=== PATIENT | female | born 1995 | race Caucasian/White ===

== ENCOUNTER 2018-12-17 07:16 | Day surgery (SDC) | payer BC, OTHER ==
[2018-12-16 12:42] VITALS: Ht 162.6 cm; Wt 122.5 kg
[~2018-12-17] VITALS: Ht 162.6 cm; Wt 122.5 kg
[2018-12-17] VITALS (13 sets, daily range): BP systolic 113–145; BP diastolic 69–84; PULSE 61–72; RESP 16–23
[~2018-12-17 07:16] MED LIST: ALBU8.5H8 INH; CEFAZOLIN 2 GM/50 ML (PMX) 50 ML IVPB SCH; HYDR12.53 ORAL
[2018-12-17] MEDS ORDERED: BACITRACIN/POLYMYXIN 28.35 GM OINT TOP ONE (09:06)
[2018-12-17] MEDS ORDERED: LIDOCAINE 1% (MPF) 30 ML INJ ONE (09:06)
[2018-12-17] MEDS ORDERED: BUPIVACAINE 0.25% (MPF) 30 ML INJ ONE (09:06)
[2018-12-17] MEDS ORDERED: FENTAnyl 50 MCG/ML VIAL ONE (09:20)
[2018-12-17] MEDS ORDERED: LIDOCAINE 2% (SDV) 5 ML INJ ONE (09:35)
[2018-12-17] MEDS ORDERED: PROPOFOL 60 ML ONE (09:35)
[2018-12-17] MEDS ORDERED: MEPERIDINE 25 MG INJ IV PRN (10:30)
[2018-12-17] MEDS ORDERED: ONDANSETRON 4 MG INJ IV PRN (10:30)
[2018-12-17] MEDS ORDERED: OXYCODONE/ACETAMINOPHEN (5/325) TAB PO PRN ×2 (10:30)
[2018-12-17] MEDS ORDERED: FENTAnyl 50 MCG/ML VIAL IV PRN ×2 (10:30)
[2018-12-17] MEDS ORDERED: LABETALOL HCL 20MG INJ IV PRN (10:30)
[2018-12-17] MEDS ORDERED: MIDAZOLAM 1 MG/ML 2 ML INJ ONE (11:24)
== END 2018-12-17 12:14 | disposition home or self-care (01) ==
LOC: SDS 07:16
PROVIDERS: ATTEND Orthopaedic Surgery
DX: G56.01 Carpal tunnel syndrome, right upper limb (principal); I10 Essential (primary) hypertension; J45.909 Unspecified asthma, uncomplicated; E66.01 Morbid (severe) obesity due to excess calories
CPT/HCPCS: 64721; 80053; 85025; 85610; 85730; J2250; J3010; Z7610; J0690